=== PATIENT | male | born 1980 | race Caucasian/White ===

== ENCOUNTER 2017-03-28 12:16 | Emergency (ER) | payer OTHER ==
[~2017-03-28] VITALS: Ht 177.8 cm; Wt 158.8 kg
--- NOTE | ~2017-03-28 | EKG ---
[address] [place] [address] ELECTROCARDIOGRAM REPORT Name: EDWIN CONRAD Room #: DEP [facility] COUNTY[facility] [id number] Admission: 03/28/17 Attend Phys: Discharge: 03/28/17 Date of : 84 Report #: [id number] THIS REPORT FOR: //name// [facility] ED Test Date: 2017-03-28 Test Time: 14:29:01 Pat Name: EDWIN CONRAD Department: Room: Gender: M Behavioral Medical Director: Mustapha VU : 1980 Requested By: Darci Little Order Number: [id number] MD: Ion Johnson Measurements Intervals [place] Rate: 85 P: 14 SD: 109 QRS: 23 QRSD: 76 T: 6 QT: 436 QTc: 519 Interpretive Statements Sinus rhythm Short SD interval RSR' in V1 or V2, probably normal variant Borderline T abnormalities, anterior leads Prolonged QT interval Baseline wander in lead(s) V2,V5 No previous ECG available for comparison Electronically Signed On 03-28-2017 16:53:56 CDT by Ion Johnson [email or web address] <ELECTRONICALLY SIGNED> By: Ion Johnson MD, [facility] 03/28/17 1653 1429 1429 Ion Johnson MD, [facility] /EPI
[2017-03-28 13:39] LABS: ABSOLUTE NEUTROPHILS 4.3 thou/uL (1.4-8.2); EOSINOPHILS 3.4 % (0.0-3.0); HEMATOCRIT 40.9 % (42.0-52.0); MCH 29.3 pg (26.0-34.0); MCHC 34.2 g/dL (28.0-37.0); MCV 85.8 fL (80.0-100.0); MONOCYTES 10.2 % (1.0-8.0); PLATELET COUNT 245 thou/uL (150-400); POLYS 63.4 % (36.0-66.0); RBC 4.76 mil/uL (4.50-6.00); RDW 14.2 % (10.5-14.5); WBC 6.8 thou/uL (4.0-11.0)
[2017-03-28 13:44] LABS: MANUAL DIFF NO
[2017-03-28 13:50] LABS: ANION GAP 7 mmol/L (7-16); BUN 10 mg/dL (7-18); CHLORIDE 105 mmol/L (98-107); CO2 27 mmol/L (21-32); CREATININE 0.9 mg/dL (0.7-1.3); GLUCOSE 95 mg/dL (74-106); POTASSIUM 3.8 mmol/L (3.5-5.1); SODIUM 139 mmol/L (136-145)
[2017-03-28 14:02] LABS: NT-PRO BRAIN NAT PEPTIDE 65 pg/mL (<300); TROPONIN-I < 0.04 ng/mL (<0.04-0.07)
[2017-03-28] MEDS ORDERED: BENADRYL25 MG PO (14:06)
[2017-03-28] MEDS ORDERED: ZYRTEC10 M5 PO (14:06)
[2017-03-28] MEDS ORDERED: NASONEX17 GM NASAL (14:06)
[2017-03-28] MEDS ORDERED: MELOXICAM15 MG PO (15:56)
[2017-03-28 16:10] VITALS: BP 105/69
== END 2017-03-28 16:10 | disposition home or self-care (01) ==
LOC: ER 12:16
PROVIDERS: Nurse Practitioner
DX: M79.622 Pain in left upper arm (principal); G47.30 Sleep apnea, unspecified; J30.2 Other seasonal allergic rhinitis; Z88.0 Allergy status to penicillin